=== PATIENT | female | born 1980 | race Caucasian/White ===

== ENCOUNTER 2019-03-10 20:35 | Inpatient (IN) | payer BC ==
[2019-03-10] MEDS ORDERED: KETOROLAC TROMETHAMINE 60 MG/2 ML VIAL IM ONE (20:39)
--- NOTE | 2019-03-10 20:39 | PDOC ---
Rapid Medical Evaluation Chief Complaint: Back Pain Time Seen by Provider: 03/10/19 20:37 Medical Evaluation: 03/10/19 20:38 HPI: Back pain since 4am this morning PE: No gross deficits ORDERS: [place] Pt states no chance of and took advil this AM Discharge Disposition - Diagnosis Back pain - Referrals - Patient Instructions - Post Discharge Activity
[2019-03-10 20:41] VITALS: BMI 32.2
[2019-03-10] MEDS ORDERED: KETOROLAC TROMETHAMINE 60 MG/2 ML VIAL ONE (21:10)
--- NOTE | 2019-03-10 21:29 | PDOC ---
History of Present Illness <Renée Foster - Last Filed: 03/11/19 03:08> - General History Source: Patient Exam Limitations: No Limitations - History of Present Illness Initial Comments: HPI: 38 y/o female presenting to [facility] ER complaining of left sided posterior lateral chest wall pain that woke the pt from sleep last night. Persisted throughout the day, but became increasingly more painful this evening. At one point, the pain moved to the left anterior chest wall. Associates a sensation of shortness of breath. Mild, intermittent, nonproductive cough. Denies associated trauma, fevers, chills, nausea, vomiting, abdominal pain, or diarrhea. No change in pain when moving her left arm or direct palpation. Attempted relief with Lidoderm patch, massage, and ibuprofen without success. Denies h/o similar. - Denies unilateral leg swelling or area of redness - Denies surgery or trauma ?4 weeks ago requiring treatment with general anesthesia - Denies oral contraceptives, hormone replacement or estrogenic hormones - Denies malignancy w/ treatment within 6 months or palliative care - Denies recent long car rides, plane trips, or other long periods of immobilization - Denies personal h/o DVT or PE - Denies personal or familial h/o blood clotting disorders [facility] Search (Reference #: [id number]): Others' Prescriptions Patient Name: Ludy King Date: 1980 Address: [address] [place] [address] Sex: Female Rx Written Rx Dispensed Drug Quantity Days Supply Prescriber Name 11/06/2018 11/06/2018 oxycodone-acetaminophen 5-325 mg tab 30 3 Amita Oh MD Patient Name: Ludy King Date: 1980 Address: [address] [place] [address] Sex: Female Rx Written Rx Dispensed Drug Quantity Days Supply Prescriber Name 04/20/2018 04/20/2018 hydromet syrup 240ml 8 Amita Oh MD Family Hx: - Denies h/o AL <65 y/o in first degree relative Social Hx: - Daily tobacco smoker - EtOH: Social, none in last 48 hours - Street drugs: Denies Medical Hx: - Denies past medical history. Denies prescription medications. Surgical Hx: - Review of Systems: In addition to that documented in the HPI above, the additional ROS was obtained : Constitutional- Denies fevers or chills Head- Denies vision changes ENMT- Denies sore throat CV- Per HPI Resp- Per HPI GI- Denies vomiting or diarrhea - Denies painful urination MSK- Denies recent trauma Skin- Denies new rashes Neuro- Denies new numbness or tingling or weakness Endocrine- Denies polyuria Heme- Denies bleeding or bruising Physical Examination: Vital signs and nursing notes reviewed. Constitutional- Well-developed, well-nourished adult female in no acute distress but mild obvious discomfort. Obese body habitus. Found semi-fowlers on hospital bed. Answered all questions appropriately and completely. Head- Normocephalic. No obvious external signs of trauma. Eyes- Sclerae white. Cardiovascular / Chest- Tachcyardic rate with regular rhythm. No murmur, rubs, clicks, or gallops. Peripheral pulses- radial pulses full. No anterior or posterior chest wall tenderness. Respiratory- Breathing unlabored. Equal chest rise and fall. Clear to auscultation bilaterally. No stridor, no wheezing, no rhonchi. Gastrointestinal- abdomen is soft, non-tender, non-distended. Neuro- Alert and oriented x4. Moving all four extremities spontaneously. MSK- No calf swelling or redness. No pretibial edema. Skin- Diaphoretic and intact. No bruising, rashes, or other lesions. - No R or L CVA tenderness. Psych- Affect- appropriate. Mood- normal. Speech was non-labored, non- pressured. MDM: National Early Warning Score (NEWS) 2 RESULT SUMMARY: 4 points National Early Warning Score Low-medium risk INPUTS: Respiratory rate, breaths per minute > 0 = 12-20 Hypercapnic respiratory failure > 0 = No SpO? > 0 = ?96% Room air or supplemental O? > 0 = Room air Temperature > 1 = 38.1-39.0C (100.5-102.2F) Systolic BP, mmHg > 0 = 111-219 Pulse, beats per minute > 3 = ?131 Consciousness > 0 = Alert 38 y/o female presenting with posterolateral pleuritic chest pain x2 days. Febrile at triage; given acetaminophen. Vitals remarkable for tachycardia without hypotension. Normoxic on room air. Physical exam as described above. Low suspicion for ACS. Possible PE, PNA, myocarditis, pericarditis, MSK strain. Will obtain blood work, EKG, and CXR. EKG unremarkable for ischemic changes. Initial troponin not elevated. Continue to have low suspicion for ACS. Chest pain started >3hrs so no indication for delta troponin. D-Dimer not elevated. Low suspicion for PE. Noted leukocytosis. CXR revealed possible left lower infiltrate on lateral view per ED wet read. Official radiology report pending. Will treat with Ceftriaxone and Azithromycin. Will admit pt to med/surg for possible PNA with fever, tachycardia, and leukocytosis. In person discussion with resident Dr. Guevara. Verbally appraised of the pts HPI, ED course, and current plan of management. Will admit pt to med/surg for attending Dr. Ny. Morales Decker M.D., PGY2 Emergency Medicine Resident <Morales Decker - Last Filed: 03/11/19 07:23> - General Chief Complaint: Back Pain Stated Complaint: BACK PAIN Time Seen by Provider: 03/10/19 20:37 Past History <Renée Foster - Last Filed: 03/11/19 03:08> - Past Medical History COPD: No Other medical history: endometriosis - Psycho Social/Smoking Cessation Hx Smoking History: Current every day smoker Information on smoking cessation initiated: No <Morales Decker - Last Filed: 03/11/19 07:23> - Past Medical History Allergies/Adverse Reactions: Allergies Allergy/AdvReac Type Severity Reaction Status Date / Time No Known Allergies Allergy Verified 03/10/19 20:41 *Physical Exam - Vital Signs Last Vital Signs Temp Pulse Resp BP Pulse Ox 101.9 F H 121 H 14 106/59 L 99 03/10/19 23:59 03/11/19 02:46 03/11/19 02:46 03/11/19 02:46 03/11/19 02:46 <Renée Foster - Last Filed: 03/11/19 03:08> - Vital Signs Last Vital Signs Temp Pulse Resp BP Pulse Ox 36.5 C 140 H 20 129/78 97 03/10/19 20:37 03/10/19 20:37 03/10/19 20:37 03/10/19 20:37 03/10/19 20:37 <Morales Decker - Last Filed: 03/11/19 07:23> Vital Signs - Vital Signs #1 Time: 23:19 Blood Pressure: 106/59 BP Location: Left Arm Blood Pressure Position: Sitting Pulse Rate: 121 Respiratory Rate: 14 O2 Sat by Pulse Oximetry (%): 99 Oxygen Delivery Method: Nasal Cannula Oxygen Flow Rate: 2 <DeckerMorales - Last Filed: 03/11/19 07:23> ED Treatment Course - LABORATORY CBC & Chemistry Diagram: 03/10/19 22:20 03/10/19 22:20 - ADDITIONAL ORDERS Additional order review: Laboratory Results 03/10/19 03/10/19 03/10/19 22:20 22:20 22:20 D-Dimer 389 Sodium 136 Potassium 3.8 Chloride 103 Carbon Dioxide 25 Anion Gap 9 BUN 6.2 L Creatinine 0.6 Est GFR (CKD-EPI)AfAm 135.91 Est GFR (CKD-EPI)NonAf 117.26 Random Glucose 101 Calcium 8.8 Total Bilirubin 0.3 AST 15 ALT 19 Alkaline Phosphatase 86 Creatine Kinase 59 Troponin I < 0.02 Total Protein 7.0 Albumin 3.8 TSH 0.37 Thyroxine (T4) 7.1 Beta HCG, Quant < 1.0 Urine Color Yellow Urine Appearance Clear Urine pH 7.5 Ur Specific [place] 1.002 L Urine Protein Negative Urine Glucose (UA) Negative Urine Ketones Negative Urine Blood Negative Urine Nitrite Negative Urine Bilirubin Negative Urine Urobilinogen 0.2 Ur Leukocyte Esterase Negative Urine HCG, Qual 03/10/19 22:20 D-Dimer Sodium Potassium Chloride Carbon Dioxide Anion Gap BUN Creatinine Est GFR (CKD-EPI)AfAm Est GFR (CKD-EPI)NonAf Random Glucose Calcium Total Bilirubin AST ALT Alkaline Phosphatase Creatine Kinase Troponin I Total Protein Albumin TSH Thyroxine (T4) Beta HCG, Quant Urine Color Urine Appearance Urine pH Ur Specific [place] Urine Protein Urine Glucose (UA) Urine Ketones Urine Blood Urine Nitrite Urine Bilirubin Urine Urobilinogen Ur Leukocyte Esterase Urine HCG, Qual Negative 03/10/19 22:20 RBC 4.32 MCV 94.1 MCHC 33.5 RDW 13.1 MPV 8.5 Neutrophils % 87.5 H Lymphocytes % 5.6 L Monocytes % 6.5 Eosinophils % 0.1 Basophils % 0.3 - RADIOLOGY Radiology Studies Ordered: Category Date Time Status CHEST PA & LAT [RAD] Stat Radiology 03/10/19 22:08 Taken - Medications Given in the ED: ED Medications Discontinued Medications Generic Name Dose Route Start Last Admin Trade Name Kofi PRN Reason Stop Dose Admin Acetaminophen 1,000 mg 03/11/19 00:00 03/11/19 00:19 Ofirmev Injection - IVPB 03/11/19 00:01 1,000 mg ONCE ONE Administration Azithromycin 500 mg/ Dextrose 250 mls @ 250 mls/hr 03/11/19 00:48 03/11/19 01 :13 IVPB 03/11/19 01:47 250 mls/hr ONCE ONE Administration Ketorolac Tromethamine 60 mg 03/10/19 20:39 03/10/19 21:38 Toradol Injection - IM 03/10/19 20:40 60 mg ONCE ONE Administration Morphine Sulfate 1 mg 03/10/19 22:42 03/10/19 23:26 Morphine Injection - IVPUSH 03/10/19 22:43 Not Given ONCE ONE Morphine Sulfate 4 mg 03/10/19 23:19 03/10/19 23:58 Morphine Injection - IVPUSH 03/10/19 23:20 4 mg ONCE ONE Administration Sodium Chloride 1,000 ml 03/10/19 22:09 03/10/19 22:41 Normal Saline - IV 03/10/19 22:10 1,000 ml ONCE ONE Administration <Renée Foster - Last Filed: 03/11/19 03:08> - LABORATORY CBC & Chemistry Diagram: 03/10/19 22:20 03/11/19 05:32 <Morales Decker - Last Filed: 03/11/19 07:23> Discharge <Renée Foster - Last Filed: 03/11/19 03:08> - Discharge Information Problems reviewed: Yes - Admission Yes <Morales Decker - Last Filed: 03/11/19 07:23> - Discharge Information Clinical Impression/Diagnosis: Shortness of breath, Tachycardia Chest pain Qualifiers: Chest pain type: unspecified Qualified Code(s): R07.9 - Chest pain, unspecified Febrile Qualifiers: Fever type: unspecified Qualified Code(s): R50.9 - Fever, unspecified Pneumonia Qualifiers: Pneumonia type: due to unspecified organism Laterality: left Lung location: lower lobe of lung Qualified Code(s): J18.9 - Pneumonia, unspecified organism Condition: Stable
[2019-03-10] MEDS ORDERED: SODIUM CHLORIDE 0.9% 500 ML INFUS.BAG IV ONE (22:09)
--- NOTE | 2019-03-10 22:16 | PDOC ---
Attending Attestation - Resident Resident Name: Morales Decker - ED Attending Attestation I have performed the following: I have examined & evaluated the patient, The case was reviewed & discussed with the resident, I agree w/resident's findings & plan - HPI HPI: 03/10/19 22:13 Pt comes with sudden onset of left back pain and tachycardia and feeling unwell today. She works at a [employer] office and states that there have been ill patients. She didn't get her flu shot this season. She started up smoking cigarettes a few weeks ago due to stress. Pt states that it hurts when she breathes O2sat is 95% Pt remains tachycardic. She is diaphoretic. - Physicial Exam PE: 03/11/19 04:47 Pt is diaphoretic SOB Tachycardic Left lung is coarse breath sounds No flank pain LLQ pain RLQ pain Exttremities NT ND; good pulses and no swelling - Medical Decision Making 03/11/19 04:49 Pt comes with cough and cold and SOB and tachycardia and now cold sweats. Pt has elevated WBC count and she has negative strep and negative flu and she will be admitted for the pneumonia that follows his coarse BS, low O2sat, tachycardia and bilat coarse breath sounds 03/11/19 04:53 She is feeling better with treatment in the ER. SHe was admitted to the hospitalist service. We are awaiting beds.
[2019-03-10 22:39] LABS: PH,URINE 7.5 (5.0-8.0); URINE APPEARANCE CLEAR; URINE BILIRUBIN NEGATIVE (NEGATIVE); URINE COLOR YELLOW; URINE GLUCOSE (UA) NEGATIVE (NEGATIVE); URINE KETONE NEGATIVE (NEGATIVE); URINE LEUK ESTERASE NEGATIVE (NEGATIVE); URINE NITRITE NEGATIVE (NEGATIVE); URINE PROTEIN NEGATIVE (NEGATIVE); URINE UROBILINOGEN 0.2 mg/dL (0.2-1.0)
[2019-03-10] MEDS ORDERED: morphine CARPU-JECT 2 MG/1 ML DISP.SYRIN IVPUSH ONE (22:42)
[2019-03-10] MEDS ORDERED: MORPHINE SULFATE 2 MG/ML VIAL ONE (22:45)
[2019-03-10 22:59] LABS: BASO % 0.3 % (0-2.0); EOS % 0.1 % (0-4.5); HEMATOCRIT 40.7 % (32.4-45.2); HEMOGLOBIN 13.6 GM/dL (10.7-15.3); LYMPH % 5.6 % (8-40); MCH 31.6 pg (25.7-33.7); MCHC 33.5 g/dl (32.0-36.0); MEAN CELL VOLUME 94.1 fl (80-96); MEAN PLT VOLUME 8.5 fl (7.5-11.1); MONO % 6.5 % (3.8-10.2); NEUT % 87.5 % (42.8-82.8); PLATELET COUNT 282 K/MM3 (134-434); RBC 4.32 M/mm3 (3.60-5.2); RDW 13.1 % (11.6-15.6)
[2019-03-10 23:15] LABS: ALBUMIN 3.8 g/dl (3.4-5.0); ALK PHOS 86 U/L (45-117); ANION GAP 9 MMOL/L (8-16); BILIRUBIN,TOTAL 0.3 mg/dL (0.2-1); BLOOD UREA NITROGEN 6.2 mg/dL (7-18); CALCIUM 8.8 mg/dL (8.5-10.1); CHLORIDE 103 mmol/L (98-107); CO2 25 mmol/L (21-32); CREATININE 0.6 mg/dL (0.55-1.3); GLUCOSE,RANDOM 101 mg/dL (74-106); POTASSIUM 3.8 mmol/L (3.5-5.1); SGOT/AST 15 U/L (15-37); SGPT/ALT 19 U/L (13-61); SODIUM 136 mmol/L (136-145)
[2019-03-10] MEDS ORDERED: morphine CARPU-JECT 4 MG/1 ML DISP.SYRIN IVPUSH ONE (23:19)
[2019-03-10] MEDS ORDERED: morphine SULFATE 4 MG/ML VIAL ONE (23:23)
[2019-03-11] MEDS ORDERED: ACETAMINOPHEN 1000 MG/100 ML VIAL (NON FORMULARY) IVPB ONE
[2019-03-11] MEDS ORDERED: ACETAMINOPHEN INJECTION 100 ML IVPB ONE (00:08)
[2019-03-11] MEDS ORDERED: CEFTRIAXONE 1 GM in DEXTROSE 5%-WATER - 100 ML IVPB ONE (00:48)
[2019-03-11] MEDS ORDERED: AZITHROMYCIN IVPB 500 MG in DEXTROSE 5%-WATER - 250 ML IVPB ONE (00:48)
[2019-03-11] MEDS ORDERED: CEFTRIAXONE 1 GM/50 ML BAG ONE ×2 (01:43→07:35)
--- NOTE | 2019-03-11 02:08 | HP ---
CHIEF COMPLAINT: Back pain PCP: HISTORY OF PRESENT ILLNESS: Patient is a 38 year old female with no reported medical history presents with complaint of back pain. Patient endorses symptoms began yesterday, described as sharp originating at left scapula radiating to her anterior left chest. Symptoms woke her up from bed and have been persistent since. Worsened with deep breathing. Patient attempted Advil, and over the counter cold medicine ( does not recall) that was not palliative. She denies prior symptoms. Of note, patient admits non productive cough that began earlier today. Denies dysuria, hematuria, diarrhea, hematochezia, melena. Symptoms acutely worsened today prompting presentation to ED. FREIGHT REPRESENTATIVE: LMP completed March 03. (1 , 1 miscarriage). Sexually active with only; does not take oral contraceptives. ER course was notable for: (1) WBC 20, febrile to 101.9F. (2) D-dimer 389. Troponin 0.02 (3) Infleunza A/B negative, Strep negative. Recent Travel: Denies PAST MEDICAL HISTORY: Denies PAST SURGICAL HISTORY: section Social History: Lives with . 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 Independent in activities of daily living. Smoking: Admits smoking 1/2 pack per day, intermittently for past 20 years. Alcohol: Denies Drugs: Denies Allergies No Known Allergies Allergy (Verified 03/10/19 20:41) HOME MEDICATIONS: REVIEW OF SYSTEMS CONSTITUTIONAL: Absent: fever, chills, diaphoresis, generalized weakness, malaise, loss of appetite, weight change HEENT: Absent: rhinorrhea, nasal congestion, throat pain, throat swelling, difficulty swallowing, mouth swelling, ear pain, eye pain, visual changes CARDIOVASCULAR: Absent: chest pain, syncope, palpitations, irregular heart rate, lightheadedness , peripheral edema RESPIRATORY: Absent: cough, shortness of breath, dyspnea with exertion, orthopnea, wheezing, stridor, hemoptysis GASTROINTESTINAL: Absent: abdominal pain, abdominal distension, nausea, vomiting, diarrhea, constipation, melena, hematochezia GENITOURINARY: Absent: dysuria, frequency, urgency, hesitancy, hematuria, flank pain, genital pain MUSCULOSKELETAL: Admits: back pain. Absent: myalgia, arthralgia, joint swelling, neck pain SKIN: Absent: rash, itching, pallor HEMATOLOGIC/IMMUNOLOGIC: Absent: easy bleeding, easy bruising, lymphadenopathy, frequent infections ENDOCRINE: Absent: unexplained weight gain, unexplained weight loss, heat intolerance, cold intolerance NEUROLOGIC: Absent: headache, focal weakness or paresthesias, dizziness, unsteady gait, seizure, mental status changes, bladder or bowel incontinence PSYCHIATRIC: Absent: anxiety, depression, suicidal or homicidal ideation, hallucinations. PHYSICAL EXAMINATION Vital Signs - 24 hr 03/10/19 03/10/19 03/11/19 20:37 23:59 01:19 Temperature 97.7 F 101.9 F H Pulse Rate 140 H Pulse Rate [#1] 121 H Respiratory 20 Rate Respiratory 14 Rate [#1] Blood Pressure 129/78 Blood Pressure 106/59 L [#1] O2 Sat by Pulse 97 Oximetry (%) O2 Sat by Pulse 99 Oximetry (%) [ #1] GENERAL: Awake, alert, and fully oriented, in no acute distress. HEAD: Normal with no signs of trauma. EYES: Pupils equal, round and reactive to light, extraocular movements intact, sclera anicteric, conjunctiva clear. EARS, NOSE, THROAT: Oropharynx clear without exudates. Moist mucous membranes. NECK: Supple without lymphadenopathy, or JVD. LUNGS: Breath sounds equal, clear to auscultation bilaterally. No wheezes, and no crackles. No accessory muscle use. HEART: Regular rate and rhythm, normal S1 and S2 without murmur, rub or gallop. ABDOMEN: Soft, nontender, not distended. Normoactive bowel sounds, no guarding, no rebound tenderness. MUSCULOSKELETAL: Normal range of motion at all joints. No bony deformities or tenderness. No CVA tenderness. EXTREMITIES: 2+ radial, dorsalis pedis pulses bilaterally, warm, well-perfused. No cyanosis. No peripheral edema. NEUROLOGICAL: Cranial nerves II-XII intact. Normal speech. No gross focal deficits. PSYCHIATRIC: Cooperative. Appropriate mood and affect. SKIN: Warm, diaphoretic. Normal turgor, no rashes or lesions noted. Normal capillary refill. Laboratory Results - last 24 hr 03/10/19 03/10/19 03/10/19 22:20 22:20 22:20 WBC 20.0 H RBC 4.32 Hgb 13.6 Hct 40.7 MCV 94.1 MCH 31.6 MCHC 33.5 RDW 13.1 Plt Count 282 MPV 8.5 Absolute Neuts (auto) 17.5 H Neutrophils % 87.5 H Lymphocytes % 5.6 L Monocytes % 6.5 Eosinophils % 0.1 Basophils % 0.3 Nucleated RBC % 0 D-Dimer Sodium Potassium Chloride Carbon Dioxide Anion Gap BUN Creatinine Est GFR (CKD-EPI)AfAm Est GFR (CKD-EPI)NonAf Random Glucose Calcium Total Bilirubin AST ALT Alkaline Phosphatase Creatine Kinase Troponin I Total Protein Albumin TSH Thyroxine (T4) Beta HCG, Quant Urine Color Yellow Urine Appearance Clear Urine pH 7.5 Ur Specific [place] 1.002 L Urine Protein Negative Urine Glucose (UA) Negative Urine Ketones Negative Urine Blood Negative Urine Nitrite Negative Urine Bilirubin Negative Urine Urobilinogen 0.2 Ur Leukocyte Esterase Negative Urine HCG, Qual Negative Influenza A (Rapid) Influenza B (Rapid) Group A Strep Rapid 03/10/19 03/10/19 03/10/19 22:20 22:20 22:30 WBC RBC Hgb Hct MCV MCH MCHC RDW Plt Count MPV Absolute Neuts (auto) Neutrophils % Lymphocytes % Monocytes % Eosinophils % Basophils % Nucleated RBC % D-Dimer 389 Sodium 136 Potassium 3.8 Chloride 103 Carbon Dioxide 25 Anion Gap 9 BUN 6.2 L Creatinine 0.6 Est GFR (CKD-EPI)AfAm 135.91 Est GFR (CKD-EPI)NonAf 117.26 Random Glucose 101 Calcium 8.8 Total Bilirubin 0.3 AST 15 ALT 19 Alkaline Phosphatase 86 Creatine Kinase 59 Troponin I < 0.02 Total Protein 7.0 Albumin 3.8 TSH 0.37 Thyroxine (T4) 7.1 Beta HCG, Quant < 1.0 Urine Color Urine Appearance Urine pH Ur Specific [place] Urine Protein Urine Glucose (UA) Urine Ketones Urine Blood Urine Nitrite Urine Bilirubin Urine Urobilinogen Ur Leukocyte Esterase Urine HCG, Qual Influenza A (Rapid) Influenza B (Rapid) Group A Strep Rapid Negative 03/10/19 22:40 WBC RBC Hgb Hct MCV MCH MCHC RDW Plt Count MPV Absolute Neuts (auto) Neutrophils % Lymphocytes % Monocytes % Eosinophils % Basophils % Nucleated RBC % D-Dimer Sodium Potassium Chloride Carbon Dioxide Anion Gap BUN Creatinine Est GFR (CKD-EPI)AfAm Est GFR (CKD-EPI)NonAf Random Glucose Calcium Total Bilirubin AST ALT Alkaline Phosphatase Creatine Kinase Troponin I Total Protein Albumin TSH Thyroxine (T4) Beta HCG, Quant Urine Color Urine Appearance Urine pH Ur Specific [place] Urine Protein Urine Glucose (UA) Urine Ketones Urine Blood Urine Nitrite Urine Bilirubin Urine Urobilinogen Ur Leukocyte Esterase Urine HCG, Qual Influenza A (Rapid) Negative Influenza B (Rapid) Negative Group A Strep Rapid ASSESSMENT/PLAN: Patient is a 38 year old female with no reported medical history presents with complaint of back pain. Sepsis secondary to viral upper respiratory infection -WBC 20, febrile to 101.9F. Tachycardic to 120BPM -Chest radiograph reveals questionable infiltrate at left lower lobe visualized in lateral view. Will obtain CT chest to evaluate is any acute process (pneumonia, abscess) is present. -D-dimer 389. WELLS 1.5 (tachycardic to 120BPM). Less likely Pulmonary Embolism. -Infleunza A/B negative, Strep negative. Will obtain urine for legionella pneumonia, viral panel. -Ceftriaxone, Axithromycin initiated in ED. Will continue; if CT reveals acute process, will escalate antibiotic coverage. -Initial troponin 0.02; will trend. -Lactic Acid -Follow blood cultures, urine cultures -IV normal saline at 100mL/ hour Obesity -BMI 32.2 -Will follow HbA1c, fasting lipid panel -Duty Engineer consult FEN -IV normal saline at 100mL/ hour -Follow BMP -Regular diet Prophylaxis -Lovenox 40m subq daily Disposition -Admit to medical- surgical floor. Visit type - Emergency Visit Emergency Visit: Yes ED Registration Date: 03/11/19 Care time: The patient presented to the Emergency Department on the above date and was hospitalized for further evaluation of their emergent condition. - New Patient This patient is new to me today: Yes Date on this admission: 03/11/19 - Critical Care Critical Care patient: No ATTENDING PHYSICIAN STATEMENT I saw and evaluated the patient. I reviewed the resident's note and discussed the case with the resident. I agree with the resident's findings and plan as documented. SUBJECTIVE: OBJECTIVE: ASSESSMENT AND PLAN:
[2019-03-11] MEDS ORDERED: ONDANSETRON 4 MG/2 ML VIAL IVPB ONE (02:52)
[2019-03-11] MEDS ORDERED: ONDANSETRON 4 MG/2 ML VIAL ONE (03:50)
--- NOTE | 2019-03-11 04:50 | PN ---
Teaching Attending Note Name of Resident: Bhavik Guevara ATTENDING PHYSICIAN STATEMENT I saw and evaluated the patient. I reviewed the resident's note and discussed the case with the resident. I agree with the resident's findings and plan as documented. SUBJECTIVE: 38-year-old woman with no significant past medical history complaining of back pain for 1 day, left lateral chest wall pain associated with a dry cough. She reports that her boss was sick with a cold and might have gotten her sick recently. She works in a medical clinic conducting research. Denied any IV drug use or recent travels. Denied any productive cough, dysuria, abdominal pain or diarrhea. Found to have fever, tachycardia, leukocytosis in the emergency room. OBJECTIVE: Last Vital Signs Temp Pulse Resp BP Pulse Ox 101.9 F H 113 H 18 125/67 93 L 03/10/19 23:59 03/11/19 03:48 03/11/19 03:48 03/11/19 03:48 03/11/19 03:48 GENERAL: Well developed, well nourished. Awake and alert. No acute distress.Nontoxic- appearing HEENT: Normocephalic, atraumatic. PERRLA, EOMI. No conjunctival pallor. Sclera are non- icteric. Moist mucous membranes. Oropharynx is clear. NECK: Supple. Full ROM. No JVD. Carotid pulses 2+ and symmetric, without bruits. No thyromegaly. No lymphadenopathy. CARDIOVASCULAR: Regular rate and rhythm. No murmurs, rubs, or gallops. Distal pulses are 2+ and symmetric. PULMONARY: No evidence of respiratory distress. Lungs clear to auscultation bilaterally. No wheezing, rales or rhonchi. ABDOMINAL: Soft. Obese, stretch godfrey, Non-tender. Non-distended. No rebound or guarding. No organomegaly. Normoactive bowel sounds. MUSCULOSKELETAL Normal range of motion at all joints. No bony deformities or tenderness. No CVA tenderness. EXTREMITIES: No cyanosis. No clubbing. No edema. No calf tenderness. SKIN: Warm and dry. Normal capillary refill. No rashes. No jaundice. PSYCHIATRIC: Cooperative. Good eye contact. Appropriate mood and affect. Abnormal Lab Results 03/10/19 03/10/19 03/10/19 22:20 22:20 22:20 WBC 20.0 H Absolute Neuts (auto) 17.5 H Neutrophils % 87.5 H Lymphocytes % 5.6 L BUN 6.2 L Ur Specific [place] 1.002 L Chest x-ray reviewed, EKG reviewed ASSESSMENT AND PLAN: 38-year-old woman with high fever, tachycardia, leukocytosis and cough suggestive of possible pneumonia however chest x-ray is not very suggestive. Would obtain chest CT at this time for better evaluation. No other source of infection were identified. Flu swab and rapid strep test were negative however cannot definitively rule out flu or other viral upper respiratory infection. Admit to [facility] Chest CT Azithromycin and ceftriaxone are ordered IV fluid hydration Send lactic acid Blood cultures ESR and CRP Trend lactate Tylenol PRN for fever Consider to treat empirically with Tamiflu Heparin subcutaneously for DVT prophylaxis
[2019-03-11 06:26] LABS: CHOLESTEROL 163 mg/dL (50-200); HDL CHOLESTEROL 53 mg/dL (40-60); LDL CHOLESTEROL (ONLY SJRH) 91 mg/dL (5-100); TRIGLYCERIDES 122 mg/dL (0-150)
[2019-03-11 06:29] LABS: ALBUMIN 3.4 g/dl (3.4-5.0); BILIRUBIN,TOTAL 0.6 mg/dL (0.2-1); BLOOD UREA NITROGEN 5.3 mg/dL (7-18); CALCIUM 8.2 mg/dL (8.5-10.1); CREATININE 0.6 mg/dL (0.55-1.3); MAGNESIUM 2.1 mg/dL (1.8-2.4); POTASSIUM 4.1 mmol/L (3.5-5.1); TOT PROT 6.3 g/dl (6.4-8.2)
[2019-03-11] MEDS: SODIUM CHLORIDE 1,000 ML IV SCH (07:34)
[2019-03-11] MEDS ORDERED: guaiFENesin 200 MG/10 ML 10 ML UNIT-DOSE CUPS ONE (07:35)
[2019-03-11] MEDS: guaiFENesin 200 MG/10 ML 10 ML UNIT-DOSE CUPS PO PRN ×3 (07:43→21:35)
--- NOTE | 2019-03-11 08:47 | EKG ---
Test Reason : Blood Pressure : / mmHG Vent. Rate : 114 BPM Atrial Rate : 114 BPM P-R Int : 152 ms QRS Dur : 082 ms QT Int : 320 ms P-R-T Axes : 062 012 021 degrees QTc Int : 441 ms SINUS TACHYCARDIA POSSIBLE LEFT ATRIAL ENLARGEMENT BORDERLINE ECG NO PREVIOUS ECGS AVAILABLE Confirmed by ARACELIS DAMON, ARIN ([id number]) on 03/11/2019 8:46:56 AM Referred By: Confirmed By:ARIN HSU MD
[2019-03-11 10:59] LABS: HEMATOCRIT 36.6 % (32.4-45.2); HEMOGLOBIN 12.1 GM/dL (10.7-15.3); MCH 31.6 pg (25.7-33.7); MCHC 33.1 g/dl (32.0-36.0); MEAN CELL VOLUME 95.4 fl (80-96); MEAN PLT VOLUME 8.2 fl (7.5-11.1); PLATELET COUNT 222 K/MM3 (134-434); RBC 3.84 M/mm3 (3.60-5.2); RDW 13.1 % (11.6-15.6); WHITE BLOOD COUNT 19.5 K/mm3 (4.0-10.0)
[2019-03-11] MEDS: ENOXAPARIN NA (PORCINE) 40 MG/0.4 ML DISP.SYRIN SQ SCH (11:30)
[2019-03-11] MEDS ORDERED: IBUPROFEN 600 MG TABLET (FP) PO PRN (11:48)
[2019-03-11] MEDS: oxyCODONE HCL 5 MG TABLET PO PRN ×2 (12:34→21:33)
--- NOTE | 2019-03-11 13:23 | PN ---
Physical Exam: SUBJECTIVE: Patient seen and examined. She complains of a cough and left-sided back pain. OBJECTIVE: Vital Signs Period Temp Pulse Resp BP Sys/Wong Pulse Ox Last 24 Hr 97.7 F-101.9 F 113-140 14-20 106-129/59-79 93-99 GENERAL: The patient is awake, alert, and fully oriented, in appears uncomfortable. LUNGS: Breath sounds equal, (+) crackles at left base, no wheezes, no accessory muscle use. HEART: Regular rhythm, S1, S2, tachycardic without murmur, rub or gallop. ABDOMEN: Obese, soft, nontender, nondistended, normoactive bowel sounds, no guarding, no rebound, no hepatosplenomegaly, no masses. EXTREMITIES: 2+ pulses, warm, well-perfused, no edema. Laboratory Results - last 24 hr 03/10/19 03/10/19 03/10/19 22:20 22:20 22:20 WBC 20.0 H RBC 4.32 Hgb 13.6 Hct 40.7 MCV 94.1 MCH 31.6 MCHC 33.5 RDW 13.1 Plt Count 282 MPV 8.5 Absolute Neuts (auto) 17.5 H Total Counted 100 Neutrophils % 87.5 H Neutrophils % (Manual) 87.0 H Band Neutrophils % 6.0 Lymphocytes % 5.6 L Lymphocytes % (Manual) 6.0 L Monocytes % 6.5 Monocytes % (Manual) 1 L Eosinophils % 0.1 Basophils % 0.3 Nucleated RBC % 0 ESR D-Dimer Sodium Potassium Chloride Carbon Dioxide Anion Gap BUN Creatinine Est GFR (CKD-EPI)AfAm Est GFR (CKD-EPI)NonAf Random Glucose Hemoglobin A1c % Lactic Acid Calcium Magnesium Total Bilirubin AST ALT Alkaline Phosphatase Creatine Kinase Troponin I C-Reactive Protein Total Protein Albumin Triglycerides Cholesterol Total LDL Cholesterol HDL Cholesterol TSH Thyroxine (T4) Beta HCG, Quant Urine Color Yellow Urine Appearance Clear Urine pH 7.5 Ur Specific [place] 1.002 L Urine Protein Negative Urine Glucose (UA) Negative Urine Ketones Negative Urine Blood Negative Urine Nitrite Negative Urine Bilirubin Negative Urine Urobilinogen 0.2 Ur Leukocyte Esterase Negative Urine HCG, Qual Negative Influenza A (Rapid) Influenza B (Rapid) Group A Strep Rapid 03/10/19 03/10/19 03/10/19 22:20 22:20 22:30 WBC RBC Hgb Hct MCV MCH MCHC RDW Plt Count MPV Absolute Neuts (auto) Total Counted Neutrophils % Neutrophils % (Manual) Band Neutrophils % Lymphocytes % Lymphocytes % (Manual) Monocytes % Monocytes % (Manual) Eosinophils % Basophils % Nucleated RBC % ESR D-Dimer 389 Sodium 136 Potassium 3.8 Chloride 103 Carbon Dioxide 25 Anion Gap 9 BUN 6.2 L Creatinine 0.6 Est GFR (CKD-EPI)AfAm 135.91 Est GFR (CKD-EPI)NonAf 117.26 Random Glucose 101 Hemoglobin A1c % Lactic Acid Calcium 8.8 Magnesium Total Bilirubin 0.3 AST 15 ALT 19 Alkaline Phosphatase 86 Creatine Kinase 59 Troponin I < 0.02 C-Reactive Protein Total Protein 7.0 Albumin 3.8 Triglycerides Cholesterol Total LDL Cholesterol HDL Cholesterol TSH 0.37 Thyroxine (T4) 7.1 Beta HCG, Quant < 1.0 Urine Color Urine Appearance Urine pH Ur Specific [place] Urine Protein Urine Glucose (UA) Urine Ketones Urine Blood Urine Nitrite Urine Bilirubin Urine Urobilinogen Ur Leukocyte Esterase Urine HCG, Qual Influenza A (Rapid) Influenza B (Rapid) Group A Strep Rapid Negative 03/10/19 03/11/19 03/11/19 22:40 05:32 05:32 WBC RBC Hgb Hct MCV MCH MCHC RDW Plt Count MPV Absolute Neuts (auto) Total Counted Neutrophils % Neutrophils % (Manual) Band Neutrophils % Lymphocytes % Lymphocytes % (Manual) Monocytes % Monocytes % (Manual) Eosinophils % Basophils % Nucleated RBC % ESR D-Dimer Sodium 135 L Potassium 4.1 Chloride 103 Carbon Dioxide 24 Anion Gap 8 BUN 5.3 L Creatinine 0.6 Est GFR (CKD-EPI)AfAm 135.91 Est GFR (CKD-EPI)NonAf 117.26 Random Glucose 117 H Hemoglobin A1c % 5.4 Lactic Acid Calcium 8.2 L Magnesium 2.1 Total Bilirubin 0.6 AST 9 L ALT 17 Alkaline Phosphatase 75 Creatine Kinase Troponin I C-Reactive Protein 15.7 H Total Protein 6.3 L Albumin 3.4 Triglycerides Cholesterol Total LDL Cholesterol HDL Cholesterol TSH Thyroxine (T4) Beta HCG, Quant Urine Color Urine Appearance Urine pH Ur Specific [place] Urine Protein Urine Glucose (UA) Urine Ketones Urine Blood Urine Nitrite Urine Bilirubin Urine Urobilinogen Ur Leukocyte Esterase Urine HCG, Qual Influenza A (Rapid) Negative Influenza B (Rapid) Negative Group A Strep Rapid 03/11/19 03/11/19 03/11/19 05:32 10:35 10:35 WBC 19.5 H RBC 3.84 Hgb 12.1 Hct 36.6 MCV 95.4 MCH 31.6 MCHC 33.1 RDW 13.1 Plt Count 222 D MPV 8.2 Absolute Neuts (auto) Total Counted Neutrophils % Neutrophils % (Manual) Band Neutrophils % Lymphocytes % Lymphocytes % (Manual) Monocytes % Monocytes % (Manual) Eosinophils % Basophils % Nucleated RBC % ESR D-Dimer Sodium Potassium Chloride Carbon Dioxide Anion Gap BUN Creatinine Est GFR (CKD-EPI)AfAm Est GFR (CKD-EPI)NonAf Random Glucose Hemoglobin A1c % Lactic Acid 1.5 Calcium Magnesium Total Bilirubin AST ALT Alkaline Phosphatase Creatine Kinase Troponin I C-Reactive Protein Cancelled Total Protein Albumin Triglycerides 122 Cholesterol 163 Total LDL Cholesterol 91 HDL Cholesterol 53 TSH Thyroxine (T4) Beta HCG, Quant Urine Color Urine Appearance Urine pH Ur Specific [place] Urine Protein Urine Glucose (UA) Urine Ketones Urine Blood Urine Nitrite Urine Bilirubin Urine Urobilinogen Ur Leukocyte Esterase Urine HCG, Qual Influenza A (Rapid) Influenza B (Rapid) Group A Strep Rapid 03/11/19 10:35 WBC RBC Hgb Hct MCV MCH MCHC RDW Plt Count MPV Absolute Neuts (auto) Total Counted Neutrophils % Neutrophils % (Manual) Band Neutrophils % Lymphocytes % Lymphocytes % (Manual) Monocytes % Monocytes % (Manual) Eosinophils % Basophils % Nucleated RBC % ESR 30 H D-Dimer Sodium Potassium Chloride Carbon Dioxide Anion Gap BUN Creatinine Est GFR (CKD-EPI)AfAm Est GFR (CKD-EPI)NonAf Random Glucose Hemoglobin A1c % Lactic Acid Calcium Magnesium Total Bilirubin AST ALT Alkaline Phosphatase Creatine Kinase Troponin I C-Reactive Protein Total Protein Albumin Triglycerides Cholesterol Total LDL Cholesterol HDL Cholesterol TSH Thyroxine (T4) Beta HCG, Quant Urine Color Urine Appearance Urine pH Ur Specific [place] Urine Protein Urine Glucose (UA) Urine Ketones Urine Blood Urine Nitrite Urine Bilirubin Urine Urobilinogen Ur Leukocyte Esterase Urine HCG, Qual Influenza A (Rapid) Influenza B (Rapid) Group A Strep Rapid Active Medications Generic Name Dose Route Start Last Admin Trade Name Freq PRN Reason Stop Dose Admin Enoxaparin Sodium 40 mg 03/11/19 10:00 03/11/19 11:30 Lovenox - SQ 40 mg DAILY MAGALYS Administration Guaifenesin 10 ml 03/11/19 06:52 03/11/19 12:34 Robitussin - PO 10 ml Q4H PRN Administration COUGH Sodium Chloride 1,000 mls @ 100 mls/hr 03/11/19 02:15 03/11/19 07:34 Normal Saline - IV 100 mls/hr ASDIR MAGALYS Administration Azithromycin 500 mg/ Dextrose 250 mls @ 250 mls/hr 03/11/19 22:00 IVPB DAILY MAGALYS Ceftriaxone Sodium 1 gm/ 50 mls @ 100 mls/hr 03/11/19 22:00 Dextrose IVPB DAILY MAGALYS Protocol Ibuprofen 600 mg 03/11/19 11:48 Motrin - PO Q4H PRN PAIN LEVEL 1-5 Oxycodone HCl 5 mg 03/11/19 11:48 03/11/19 12:34 Roxicodone - PO 5 mg Q4H PRN Administration PAIN LEVEL 6-10 ASSESSMENT/PLAN: This is a 38 year old woman with no significant medical history who presented to the ED with back pain. 1. Sepsis (leukocytosis, fever, tachycardia) secondary to pneumonia - Chest CT shows large LLL consolidation - Continue ceftriaxone, azithromycin - Follow-up blood cultures - Urine Legionella, Pneumococcus Ag negative 2. Obesity with BMI 32.2 Visit type - Emergency Visit Emergency Visit: Yes ED Registration Date: 03/11/19 Care time: The patient presented to the Emergency Department on the above date and was hospitalized for further evaluation of their emergent condition. - New Patient This patient is new to me today: Yes Date on this admission: 03/11/19 - Critical Care Critical Care patient: No - Discharge Referral Referred to [facility] No
[2019-03-11] MEDS: ALBUTEROL SO4 0.083% IH SOL 2.5 MG/3 ML VIAL.NEB. NEB PRN (20:39)
[2019-03-11] MEDS ORDERED: PT OWN MED DRAWER 7, Y5N ONE (20:55)
[2019-03-11] MEDS ORDERED: DEXTROSE 5%-WATER - 50 ML IVPB ONE (20:55)
[2019-03-11] MEDS ORDERED: cefTRIAXone SODIUM 1 GM VIAL ONE (20:55)
[2019-03-11] MEDS: CEFTRIAXONE 1 GM in DEXTROSE 5%-WATER - 50 ML IVPB SCH (21:35)
[2019-03-11] MEDS ORDERED: AZITHROMYCIN IVPB 500 MG in DEXTROSE 5%-WATER - 250 ML IVPB SCH (22:00)
[2019-03-12] MEDS: SODIUM CHLORIDE 1,000 ML IV SCH (04:35)
[2019-03-12] MEDS: oxyCODONE HCL 5 MG TABLET PO PRN (04:54)
[2019-03-12 06:44] LABS: BASO % 0.2 % (0-2.0); EOS % 0.7 % (0-4.5); HEMATOCRIT 30.9 % (32.4-45.2); HEMOGLOBIN 10.4 GM/dL (10.7-15.3); LYMPH % 12.2 % (8-40); MCHC 33.5 g/dl (32.0-36.0); MEAN CELL VOLUME 95.4 fl (80-96); MEAN PLT VOLUME 8.1 fl (7.5-11.1); MONO % 4.6 % (3.8-10.2); NEUT % 82.3 % (42.8-82.8); PLATELET COUNT 220 K/MM3 (134-434); RBC 3.24 M/mm3 (3.60-5.2); RDW 13.3 % (11.6-15.6); WHITE BLOOD COUNT 14.9 K/mm3 (4.0-10.0)
[2019-03-12 07:00] LABS: BLOOD UREA NITROGEN 5.3 mg/dL (7-18); CREATININE 0.5 mg/dL (0.55-1.3); POTASSIUM 4.1 mmol/L (3.5-5.1)
[2019-03-12] MEDS ORDERED: DEXTROSE 5%-WATER - 50 ML IVPB ONE (09:01)
[2019-03-12] MEDS ORDERED: cefTRIAXone SODIUM 1 GM VIAL ONE (09:01)
[2019-03-12] MEDS ORDERED: AZITHROMYCIN IVPB 500 MG/250 ML BAG IVPB SCH (09:09)
[2019-03-12] MEDS: ALBUTEROL SO4 0.083% IH SOL 2.5 MG/3 ML VIAL.NEB. NEB PRN (09:10)
[2019-03-12] MEDS: CEFTRIAXONE 1 GM in DEXTROSE 5%-WATER - 50 ML IVPB SCH (09:32)
[2019-03-12] MEDS: ENOXAPARIN NA (PORCINE) 40 MG/0.4 ML DISP.SYRIN SQ SCH (09:32)
--- NOTE | 2019-03-12 09:52 | PN ---
Teaching Attending Note Name of Resident: Bhavik Guevara ATTENDING PHYSICIAN STATEMENT I saw and evaluated the patient. I reviewed the resident's note and discussed the case with the resident. I agree with the resident's findings and plan as documented. Seen and examined; please see resident note for further historical information. I personally verified all tay historical information and exam findings. Personally interpreted all imaging and diagnostics and reviewed appropriate consults. I reviewed all labs and vital signs as per resident note and EMR as documented. I agree with the above assessment and plan unless supplemented by myself in the following. Agree with subjective information as outlined in the resident note. Patient is stable, with sepsis secondary to community-acquired pneumonia in the left lower lobe. Continue antibiotics. Heart rate is improved with normal blood pressure and breathing 18 breaths/min with 99% on room air. VS, labs, imaging reviewed NAD, AAO, resting comfortably in bed. RRR s1/2 no mgr Normal muscle tone, moves all 5 extremities with normal apparent strength Neck is supple, trachea midline, no amber LN Lungs left-sided rales with sym expansion NT ND +BS no amber organomegaly CN2-12 wnl; no FND NC AT EOMI PERRLA Normal mood, appropriate behavior, euthymic affect No skin breakdown or rashes noted A/P: Presents with sepsis 2/2 LLL CAP Problems improved: -Sepsis 2/2 LLL PNA (CAP; continue abx, followup microbiology. She has negligible curb 65 score, no underlying immunosuppressive edition, is hemodynamically stable and not desaturating. Respiratory came in and stated that she did not need to pre-and post as she was satting 99% on room air with no progressive symptoms. She wants to go home. She was counseled on things to monitor for. She is no longer septic. She will follow-up with her primary care ) DC planning as per resident note. Agree with it as outlined Full Code
[2019-03-12 10:33] VITALS: BP 111/63; TEMP 98.9
[2019-03-12] MEDS ORDERED: LACTATED RINGERS SOLUTION 1000 ML INFUS.BAG IV ONE (10:45)
--- NOTE | 2019-03-12 11:56 | DS ---
Physical Exam: SUBJECTIVE: Patient seen and examined at bedside this morning. Endorses improvement in her shortness of breath. Denies acute complaints. OBJECTIVE: Vital Signs Period Temp Pulse Resp BP Sys/Wong Pulse Ox Last 24 Hr 97.9 F-99.5 F 67-107 18-20 99-128/57-68 95-99 PHYSICAL EXAM GENERAL: The patient is awake, alert, and fully oriented, in no acute distress. HEAD: Normal with no signs of trauma. EYES: PERRL, extraocular movements intact, sclera anicteric, conjunctiva clear. ENT: Ears normal, nares patent, oropharynx clear without exudates, moist mucous membranes. NECK: Trachea midline, full range of motion, supple. LUNGS: Breath sounds equal, clear to auscultation bilaterally, no wheezes, no crackles, no accessory muscle use. HEART: Regular rate and rhythm, S1, S2 without murmur, rub or gallop. ABDOMEN: Soft, nontender, nondistended, normoactive bowel sounds, no guarding, no rebound, no hepatosplenomegaly, no masses. EXTREMITIES: 2+ pulses, warm, well-perfused, no edema. NEUROLOGICAL: Cranial nerves II through XII grossly intact. Normal speech, gait not observed. PSYCH: Normal mood, normal affect. SKIN: Warm, dry, normal turgor, no rashes or lesions noted. LABS Laboratory Results - last 24 hr 03/12/19 03/12/19 06:08 06:08 WBC 14.9 H RBC 3.24 L Hgb 10.4 L Hct 30.9 L D MCV 95.4 MCH 32.0 MCHC 33.5 RDW 13.3 Plt Count 220 MPV 8.1 Absolute Neuts (auto) 12.3 H Neutrophils % 82.3 Lymphocytes % 12.2 D Monocytes % 4.6 Eosinophils % 0.7 D Basophils % 0.2 Nucleated RBC % 0 Sodium 140 Potassium 4.1 Chloride 110 H Carbon Dioxide 26 Anion Gap 4 L BUN 5.3 L Creatinine 0.5 L Est GFR (CKD-EPI)AfAm 144.31 Est GFR (CKD-EPI)NonAf 124.51 Random Glucose 102 Calcium 8.0 L HOSPITAL COURSE: Date of Admission:03/11/19 Date of Discharge: 03/12/19 Patient is a 38 year old female with no reported medical history presents with complaint of back pain. WBC 20, febrile to 101.9F, tachycardic to 120BPM upon admisison. CT chest confirmed left lower lobe pneumonia. Patient was started on Ceftriaxone, Axithromycin for community acquired pneumonia. Influenza A/B swab, urine for legionella pneumonia was negative. Patient significantly improved with antibiotics and was discharged home with Levofloxacin 750mg PO for 7 days. Follow up with primary care physician. Minutes to complete discharge: 36 Discharge Summary Problems reviewed: Yes Reason For Visit: FEVER/SOB/TACHYCARDIA/CHEST PAIN/PNEUMONIA Current Active Problems Chest pain (Acute) Febrile (Acute) Pneumonia (Acute) Shortness of breath (Acute) Tachycardia (Acute) Condition: Improved - Instructions Diet, Activity, Other Instructions: You were seen in the hospital for back pain. YOu were found to have a pneumonia infection within your lungs and treated with antibiotics. You are being discharged home. You will take antibiotic: Levofloxacin 750mg PO daily Follow up with your primary care physician within three- five days after hospital discharge. Return to nearest Emergency Department if you experience worsening symptoms, subjective fever, chills, shortness of breath, chest pain, palpitations, abdominal pain, nausea, vomiting, any fall or trauma. Referrals: Amita Oh [Primary Care Provider] - 1 Week Disposition: HOME - Home Medications Comprehensive Discharge Medication List: Ambulatory Orders Levofloxacin [Levaquin] 750 mg PO DAILY #7 tablet 03/12/19 This patient is new to me today: No Emergency Visit: Yes ED Registration Date: 03/11/19 Care time: The patient presented to the Emergency Department on the above date and was hospitalized for further evaluation of their emergent condition. Critical Care patient: No - Discharge Referral Referred to [facility] No ATTENDING PHYSICIAN STATEMENT I saw and evaluated the patient. I reviewed the resident's note and discussed the case with the resident. I agree with the resident's findings and plan as documented. SUBJECTIVE: OBJECTIVE: ASSESSMENT AND PLAN:
[2019-03-12 12:25] VITALS: PULSE 78
== END 2019-03-12 12:54 | disposition home or self-care (01) | DRG 871 ==
LOC: JER 20:35 → JERBED 03-11 01:04 → J7W 03-11 09:02
PROVIDERS: ADMIT Internal Medicine; ATTEND Internal Medicine
DX: A41.9 Sepsis, unspecified organism (principal); J18.9 Pneumonia, unspecified organism; J06.9 Acute upper respiratory infection, unspecified; E66.9 Obesity, unspecified; Z68.32 Body mass index [BMI] 32.0-32.9, adult; R07.9 Chest pain, unspecified; R00.0 Tachycardia, unspecified; D72.829 Elevated white blood cell count, unspecified; F17.210 Nicotine dependence, cigarettes, uncomplicated
CPT/HCPCS: 36415; 71046-TC-FY; 71250-TC; 80048; 80053; 80061; 81003; 82550; 83036; 83605; 83721; 83735; 84436; 84443; 84484; 84702; 84703; 85025; 85027; 85379; 85651; 86140; 87040; 87070; 87086; 87633; 87804; 87880; 87899; 93005; 93010; 94640; 94761; 99285-25; J0131; J7030